=== PATIENT | female | born 1970 | race Caucasian/White ===

== ENCOUNTER 2024-07-11 13:09 | Outpatient (CLI) | payer BC, SELFPAY ==
[2024-07-11 12:16] LABS: Abs Immature Grans 0.02 10^3/uL (0.0-0.06); Absolute Basophil Count 0.06 10^3/uL (0.0-0.2); Absolute Eosinophil Count 0.12 10^3/uL (0.0-0.7); Absolute Lymphocyte Count 1.64 10^3/uL (1.2-3.4); Absolute Monocyte Count 0.46 10^3/uL (0.1-0.8); Absolute Neutrophil Count 3.81 10^3/uL (1.2-6.7); HCT 34.3 % (36.0-46.0); HGB 10.7 g/dL (11.2-15.7); Immature Grans % 0.3 %; Lymphocytes % 26.8 %; MCH 20.2 pg (27.0-33.0); MCHC 31.2 % (32.0-36.0); MCV 65 fL (80-95); Monocytes % 7.5 %; Neutrophils % 62.4 %; Platelet Count 397 10^3/uL (130-400); RBC 5.31 10^6/uL (3.93-5.22); RDW 17.6 % (11.7-14.6); RDW-SD 38.6 fL; WBC 6.11 10^3/uL (4.4-10.8)
[2024-07-11 12:30] LABS: Diff Comment Diff Reviewed; Microcytosis 2+; Poikilocytes 2+
[2024-07-11 12:54] LABS: Iron 76 ug/dL (50-170); Total Iron Binding Capacity 248 ug/dL (250-450); Transferrin Sat 31 % (15-50)
[2024-07-11 13:18] LABS: ALT 20 U/L (14-59); AST 18 U/L (15-37); Albumin 3.8 g/dL (3.4-5.0); Alkaline Phosphatase 95 U/L (46-116); Anion Gap 6.1 mmol/L (3-11); BUN 16 mg/dL (7-18); Bilirubin, Total 0.6 mg/dL (0.2-1.0); CO2 30.9 mmol/L (21.0-32.0); CREATININE 0.8 mg/dL (0.55-1.02); Calcium 9.5 mg/dL (8.5-10.1); Calculated LDL 83 mg/dL (<100); Chloride 108 mmol/L (98-107); Cholesterol 171 mg/dL (<200); Estimated GFR 88.05 (mL/min/1.73m2); Ferritin 60 ng/mL (8-252); Glucose 87 mg/dL (74-106); HDL Cholesterol 73 mg/dL (>or=50); Sodium 145 mmol/L (136-145); Total Protein 7.8 g/dL (6.4-8.2); Triglyceride 75 mg/dL (<150); Vitamin B12 483 pg/mL (193-986); Vitamin D 25 Total 24 ng/mL (30-100)
[2024-07-11 13:19] LABS: Folate > 20.0 ng/mL (8.6-20.0)
[2024-07-11 22:51] LABS: T4, Free 1.2 ng/dL (0.8-2.2)
[2024-07-11 23:00] LABS: T3, Total 175 ng/dL (97-169)
== END 2024-07-11 13:10 | disposition home or self-care (01) ==
LOC: LBO 13:10
PROVIDERS: PCP Nurse Practitioner Adult Health; Visit Provider Nurse Practitioner Adult Health
DX: E05.90 Thyrotoxicosis, unspecified without thyrotoxic crisis or storm (principal); E83.51 Hypocalcemia; D56.9 Thalassemia, unspecified; Z13.1 Encounter for screening for diabetes mellitus; Z13.220 Encounter for screening for lipoid disorders; Z13.6 Encounter for screening for cardiovascular disorders
CPT/HCPCS: 36415; 80053; 80061; 82306; 82607; 82728; 82746; 83540; 83550; 84439; 84443; 84480; 85025